=== PATIENT | male | born 1995 | race Hispanic/Latino ===

== ENCOUNTER 2018-03-13 14:41 | Outpatient (CLI) | payer OTHER ==
--- NOTE | 2018-03-14 08:05 | MRI ---
MRI OF THE RIGHT KNEE: DATE: 03/13/2018. PROVIDED CLINICAL HISTORY: Right knee pain status post injury. FINDINGS: The anterior cruciate ligament, posterior cruciate ligament, medial collateral ligament, and lateral collateral ligamentous complex demonstrate an intact MR appearance, as does the extensor mechanism. The medial and lateral menisci demonstrate no evidence for tear. No focal articular cartilage defect is apparent. There is a small knee joint effusion. 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 No f ocal concerning regional marrow or muscular signal abnormality is evident. IMPRESSION: 1. Small knee joint effusion. 2. No evidence for internal derangement. POS: OFF
== END 2018-03-13 14:42 | disposition home or self-care (01) ==
LOC: SCSMRI 14:41
PROVIDERS: ATTEND Pediatrics Sports Medicine
DX: S83.206A Unspecified tear of unspecified meniscus, current injury, right knee, initial encounter (principal); M25.561 Pain in right knee; M25.461 Effusion, right knee